=== PATIENT | male | born 1965 | race Caucasian/White ===

== ENCOUNTER 2018-05-18 20:19 | Emergency (ER) | payer SELFPAY ==
[~2018-05-18] VITALS: Ht 188 cm; Wt 95.1 kg
--- NOTE | 2018-05-18 20:26 | NUR ---
[id number]
--- NOTE | 2018-05-18 20:39 | NUR ---
EKG DONE IN TRIAGE
[2018-05-18 21:07] LABS: BASOPHILS # (AUTO) 0.03 x10^3/uL (0-0.1); BASOPHILS % (AUTO) 1 % (0-1); EOSINOPHILS # (AUTO) 0.12 x10^3/uL (0-0.4); EOSINOPHILS % (AUTO) 2 % (1-7); LYMPHOCYTES # (AUTO) 1.06 x10^3/uL (1-3.4); LYMPHOCYTES % (AUTO) 20 % (22-44); MD NO; MEAN CORPUSCULAR HEMOGLOBIN 28.2 pg (27.5-34.5); MEAN CORPUSCULAR HGB CONC 34.1 g/dL (33.2-36.2); MEAN CORPUSCULAR VOLUME 82.7 fL (81-97); MEAN PLATELET VOLUME 8.1 fL (7.4-10.4); MONOCYTES # (AUTO) 0.35 x10^3/uL (0.2-0.8); MONOCYTES % (AUTO) 6 % (2-9); NEUTROPHILS # (AUTO) 3.87 x10^3/uL (1.8-6.8); NEUTROPHILS % (AUTO) 71 % (42-75); PLATELET COUNT 139 x10^3/uL (130-400); RED BLOOD COUNT 5.06 x10^6/uL (4.38-5.82); RED CELL DISTRIBUTION WIDTH 14.5 % (9.4-14.8)
[2018-05-18 21:15] LABS: ANION GAP 6 mmol/L (5-15); CALCIUM 8.6 mg/dL (8.5-10.1); CHLORIDE 103 mmol/L (98-107); CREATININE 0.97 mg/dL (0.7-1.3)
--- NOTE | 2018-05-18 23:42 | NUR ---
PROVIDER AT BEDSIDE TO EVAL.
[2018-05-18] MEDS ORDERED: AZITHROMYCIN 500 MG TABLET PO STA (23:46)
[2018-05-18] MEDS ORDERED: AZITHROMYCIN 250 MG TABLET ONE (23:51)
--- NOTE | 2018-05-18 23:56 | NUR ---
PT MEDICATED PER MAY. TO BE D/C HOME.
[2018-05-19 00:26] VITALS: BP 154/102
== END 2018-05-19 00:28 | disposition home or self-care (01) ==
LOC: ED 23:59
DX: J44.1 Chronic obstructive pulmonary disease with (acute) exacerbation (principal); I10 Essential (primary) hypertension; F17.210 Nicotine dependence, cigarettes, uncomplicated; Z76.0 Encounter for issue of repeat prescription
CPT/HCPCS: 36415; 71046; 80048; 85025; 93005; 99284; J7512